=== PATIENT | male | born 1970 | race Caucasian/White ===

== ENCOUNTER 2016-10-10 11:03 | Emergency (ER) | payer SELFPAY ==
[2016-10-10 11:21] VITALS: TEMP 98.2; BMI 27.8
[2016-10-10] MEDS ORDERED: OXYCODONE HCL 5 MG TABLET PO ONE (11:26)
[2016-10-10] MEDS ORDERED: TRIMETHOPRIM-SULFAMETHOXAZOLE TAB PO ONE (11:26)
--- NOTE | 2016-10-10 12:14 | EDPRACDOC ---
- General Information Chief Complaint: Wound Stated Complaint: RT JAW ABSCESS Time Seen by Provider: 10/10/16 11:26 Information Source: Patient Mode of Arrival:: Car Home Medications: Home Medications Oxycodone Immediate Release [Oxycodone Immediate Release (OxyIR)] 5 mg PO Q6H PRN #20 tab 10/10/16 Sulfamethoxazole/Trimethoprim [Bactrim Ds Tablet] 1 tab PO BID #14 tab 10/10/16 Allergies/Adverse Reactions: Allergies Allergy/AdvReac Type Severity Reaction Status Date / Time acetaminophen [From Tylenol] Allergy Unknown/See Verified 10/10/16 11:39 Comments - History of Present Illness Onset: 3 days HPI: PT PRESENTS WITH RED, DRAINING PAINFUL AREA TO HIS RIGHT LOWER JAW. DENIES FEVER , CHILLS, NAUSEA OR VOMITING. Location: Reports: Face Last Tetanus: No Relevent History Of: Reports: None Prior Abscess: Reports: None Pain: Reports: Moderate Quality: Reports: Draining, Painful, Red Associated Signs & Symptoms: Reports: None ED Past Medical History - History Reviewed Yes Nurses notes reviewed and agree except as marked - Patient Medical History GI/ History: Reports: Kidney Stones Psychological History: Denies: Depression - Social Medical History Smoking Status: Never smoker EDM Review of Systems - Review of Systems ROS Negative Except as Marked: Yes All systems reviewed and were negative except as marked - Physical Exam Constitutional: Alert Oriented to: Time, Person, Place Last recorded Vital Signs: Last Vital Signs Temp 98.2 F 10/10/16 11:19 Pulse 80 10/10/16 11:19 Resp 20 10/10/16 11:19 BP 152/87 10/10/16 11:19 Pulse Ox 96 10/10/16 11:19 Oxygen Pulse Oxygen Saturation 96 O2 Device Oxygen Flow Rate Fraction of Inspired Oxygen ( FIO2) - HEENT Head: Normal ( normocephalic) Eye Exam: Normal (PERRL, EOMI, Sclera white) Oropharynx: Normal (Pharynx:Moist without exudate,Gums-no swelling) Tympanic Membrane: Normal Nose: No Symptoms Reported (septum midline) Neck: Normal (FROM, trachea at midline) - Respiratory/Cardiovascular Respiratory: Normal - CTA (BBS clear to auscultation without adventitious sounds ) Cardiovascular: Normal (RRR without murmur, gallop or rub) - GI Auscultation: Normal (NABS) Palpation: Normal (Soft,No rebound or guarding, non distended) Tenderness: Non tender White's Sign: Negative Rectal Exam: Deferred - Musculoskeletal Back: Normal (Non-Tender) Extremities: Normal (Normal tone, Pulses 2+ No cyanosis or edema, FROM) - Integumentary Skin: Normal, Warm, Dry Lymphatics: Normal (no adenopathy) - Neurologic Memory Impaired: Normal Motor Function: Normal (Normal tone, Pulses 2+ No cyanosis or edema, FROM) Cranial Nerve: Normal (CN II-X11 intact sensation, strength 5/5) Cerebellar: Normal Mood Description: Normal Perception: Normal ED Abscess/Mass Exam - Integumentary Skin: Normal Mass: Size (PLUM), Red, Tender, Warm, Firm, Pus Drainage, Local Cellulitis Lymphatics: Normal - Differential Diagnosis Abscess, Cellulitis Decision Time to Discharge: 12:13 - Departure Disposition: Home Condition: Stable Final Diagnosis: Abscess Cellulitis Qualifiers: Site of cellulitis: face Qualified Code(s): L03.211 - Cellulitis of face Instructions: Abscess (ED), Cellulitis (ED) Education/Counseling Given To: Patient Education/Counseling Given Regarding: Diagnosis, Treatment, Prognosis, Follow Up Referrals: Ozzy Craft MD [Staff Physician] - One Week Prescriptions: New Oxycodone Immediate Release [Oxycodone Immediate Release (OxyIR)] 5 mg PO Q6H PRN #20 tab PRN Reason: Pain Sulfamethoxazole/Trimethoprim [Bactrim Ds Tablet] 1 tab PO BID #14 tab Forms: Excuse Note Additional Instructions: KEEP AREA CLEAN AND DRY. CHANGE DRESSING TWICE A DAY. RETURN TO THE ED IN TWO DAYS FOR A WOUND CHECK. RETURN SOONER IF THE AREA WORSENS OR IF YOU BEGIN TO SHOW SIGNS OR SYMPTOMS OF INFECTION SUCH NAUSEA, VOMITING, CHILLS, FEVER. TAKE ALL YOUR ANTIBIOTICS PRESCRIBED. FOLLOW UP WITH PRIMARY CARE PROVIDER NEXT WEEK. KEEP AREA ELEVATED AND YOU MAY PLACE ICE ON THE AREA FOR COMFORT.
[2016-10-10 13:25] VITALS: BP 148/79; PULSE 74
== END 2016-10-10 12:20 | disposition home or self-care (01) ==
LOC: ED 11:03
DX: M27.2 Inflammatory conditions of jaws (principal); L03.211 Cellulitis of face
CPT/HCPCS: 99283; J3490